=== PATIENT | female | born 1970 | race Caucasian/White ===

== ENCOUNTER → 2017-01-29 | Outpatient (CLI) | payer BC ==
--- NOTE | 2017-01-29 16:52 | CT ---
EXAMINATION TYPE: CT sinus wo con DATE OF EXAM: 01/29/2017 4:39 PM COMPARISON: NONE HISTORY: Nose and ear stuffiness x years per patient. Chronic sinusitis. CT DLP: 581.40 mGycm. Automated Exposure Control for Dose Reduction was Utilized. TECHNIQUE: CT scan of the sinuses is performed without contrast, axial images are obtained, coronal r eformatted images are also reviewed. FINDINGS: There is mild to moderate mucosal thickening involving the ethmoid sinuses bilaterally. Mil d mucosal thickening involving the inferior left frontal sinus is seen. Mild mucosal thickening invol ving left maxillary sinus is seen most pronounced anteriorly and superiorly. The ostiomeatal complex is blocked by soft tissue density on the left but patent on the right on coronal image 23. Nasal sep ermias is slightly deviated to left of midline. Visualized portion of mastoid air cells show no abnormal opacification. The globes are intact bilate rally. IMPRESSION: Chronic paranasal sinus disease as detailed above
== END | disposition home or self-care (01) ==
LOC: RADCTMAIN 16:11
PROVIDERS: ATTEND Otolaryngology
DX: J32.9 Chronic sinusitis, unspecified (principal)
CPT/HCPCS: 70486

== ENCOUNTER 2018-02-03 16:59 | Emergency (ER) | payer MEDICARE, OTHER ==
[2018-02-03 17:24] VITALS: BP 146/95; PULSE 117; RESP 18; TEMP 98.7
[2018-02-03] MEDS ORDERED: cloNIDine 0.1 MG/24HR PATCH 1 PATCH PATCH TRANSDERM STA ×2 (17:28→17:41)
--- NOTE | 2018-02-03 17:31 | ED ---
General Adult HPI - General Chief complaint: Recheck/Abnormal Lab/Rx Stated complaint: Med Refill/Withdrawls Time Seen by Provider: 02/03/18 17:18 Source: patient, RN notes reviewed Mode of arrival: ambulatory Limitations: no limitations - History of Present Illness Initial comments: 47 yo female presents for medication refill. She states that she ran out of her narcosis. She hadn't filled on January 10 and she showed me the bottle. She states she is out of them. She called her doctor and they referred her here. She states is having little nausea. Her last pill was this morning. She states that she just needs something to help her with her withdrawal symptoms her she needs refill of her medications. At this time she is not having any other symptoms. She denies any fever chills. She denies any nausea vomiting or diarrhea. Patient denies any recent fever, chills, shortness of breath, chest pain, back pain, abdominal pain, nausea vomiting, numbness or tingling, dysuria or hematuria, constipation or diarrhea, headaches or visual changes, or any other current symptoms. - Related Data Previous Rx's Medication Instructions Recorded Ondansetron Odt [Zofran ODT] 4 mg PO Q8HR PRN #20 tab 02/03/18 Allergies Allergy/AdvReac Type Severity Reaction Status Date / Time aspirin Allergy Swelling Verified 02/03/18 17:38 codeine Allergy Nausea & Verified 02/03/18 17:38 Vomiting diphenhydramine Allergy Nausea & Verified 02/03/18 17:38 [From Benadryl] Vomiting grass pollen Allergy Itching Verified 02/03/18 17:38 iodine Allergy Rash/Hives Verified 02/03/18 17:38 Penicillins Allergy Rash/Hives Verified 02/03/18 17:38 shellfish derived [Shellfish] Allergy Rash/Hives Verified 02/03/18 17:38 Sulfa (Sulfonamide Allergy Nausea & Verified 02/03/18 17:38 Antibiotics) Vomiting sulfamethoxazole AdvReac Unknown Verified 02/03/18 17:38 [From Bactrim] trimethoprim [From Bactrim] AdvReac Unknown Verified 02/03/18 17:38 Review of Systems ROS Statement: Those systems with pertinent positive or pertinent negative responses have been documented in the HPI. ROS Other: All systems not noted in ROS Statement are negative. Past Medical History Past Medical History: Fibromyalgia, Osteoarthritis (OA) Additional Past Medical History / Comment(s): chronic back pain History of Any Multi-Drug Resistant Organisms: None Reported Past Surgical History: No Surgical Hx Reported Past Psychological History: No Psychological Hx Reported Smoking Status: Never smoker Past Alcohol Use History: None Reported Past Drug Use History: None Reported General Exam Limitations: no limitations Head exam: Present: atraumatic, normocephalic, normal inspection ENT exam: Present: normal exam, mucous membranes moist Neck exam: Present: normal inspection. Absent: tenderness, meningismus, lymphadenopathy Respiratory exam: Present: normal lung sounds bilaterally. Absent: respiratory distress, wheezes, rales, rhonchi, stridor Cardiovascular Exam: Present: regular rate, normal rhythm, normal heart sounds. Absent: systolic murmur, diastolic murmur, rubs, gallop, clicks Neurological exam: Present: alert, oriented X3 Psychiatric exam: Present: normal affect, normal mood Skin exam: Present: warm, dry, intact, normal color. Absent: rash Course Vital Signs 02/03/18 17:18 Temperature 98.7 F Pulse Rate 117 H Respiratory 18 Rate Blood Pressure 146/95 O2 Sat by Pulse 99 Oximetry Medical Decision Making - Medical Decision Making 47-year-old female presents for narcotic refill prescription. At this time her current prescription is still active she has at least 3-4 more days of the prescription. We discussed that we cannot refill less than maps was run. We did give her Catapres and his prescription for Zofran to help with her withdrawal symptoms. We discussed continued follow-up with her family care doctor and return parameters. Patient stated that she understood and she is agreement this plan. She will be discharged. Disposition Clinical Impression: Encounter for medication refill, Opiate withdrawal Disposition: HOME SELF-CARE Condition: Stable Instructions: Opioid Withdrawal (ED) Additional Instructions: Please use medication as discussed. Please follow up with family doctor if symptoms have not improved over the next two days. Please return to the emergency room if your symptoms increase or worsen or for any other concerns. Prescriptions: Ondansetron Odt [Zofran ODT] 4 mg PO Q8HR PRN #20 tab PRN Reason: Nausea Referrals: Treva Goisn MD [REFERRING] - 1-2 days Time of Disposition: 17:31
== END 2018-02-03 17:50 | disposition home or self-care (01) ==
LOC: EC 16:59
DX: F11.23 Opioid dependence with withdrawal (principal); Z76.0 Encounter for issue of repeat prescription; Z88.0 Allergy status to penicillin; Z88.2 Allergy status to sulfonamides; Z88.1 Allergy status to other antibiotic agents; Z88.5 Allergy status to narcotic agent; Z88.6 Allergy status to analgesic agent; Z88.8 Allergy status to other drugs, medicaments and biological substances; Z91.013 Allergy to seafood; Z91.048 Other nonmedicinal substance allergy status
CPT/HCPCS: 99283